=== PATIENT | female | born 1960 | race Hispanic/Latino ===

== ENCOUNTER 2018-07-08 00:24 | Inpatient (IN) | payer OTHER ==
[2018-07-08 01:56] LABS: BASO # 0.1 K/uL (0.0-0.2); BASO % 0.7 % (0.0-2.0); EOS # 0.2 K/uL (0.0-0.7); EOS % 2.1 % (0.0-4.0); HEMOGLOBIN 12.4 g/dL (11.0-16.0); LYMPH # 1.6 K/uL (1.0-4.3); LYMPH % 17.2 % (20.0-40.0); MEAN CELL VOLUME 93.1 fL (81.0-99.0); MEAN CORPUSCULAR HEMOGLOBIN 32.2 pg (27.0-31.0); MEAN CORPUSCULAR HGB CONC 34.6 g/dL (33.0-37.0); MEAN PLATELET VOLUME 7.9 fL (7.2-11.7); MONO # 0.4 K/uL (0.0-0.8); NEUT # 6.9 K/uL (1.8-7.0); RBC 3.83 Mil/uL (3.80-5.20); RED CELL DISTRIBUTION WIDTH 13.3 % (11.5-14.5); WHITE BLOOD COUNT 9.1 K/uL (4.8-10.8)
[2018-07-08 02:09] LABS: INR 1.1; PROTHROMBIN TIME 11.8 SECONDS (9.7-12.2)
[2018-07-08 02:16] LABS: ALB/GLOB RATIO 1.4 (1.0-2.1); ALBUMIN 4.6 g/dL (3.5-5.0); ALT/SGPT 40 U/L (9-52); AST/SGOT 35 U/L (14-36); BLOOD UREA NITROGEN 13 mg/dL (7-17); CALCIUM 9.6 mg/dl (8.6-10.4); GFR NON-AFRICAN AMERICAN > 60
--- NOTE | 2018-07-08 02:53 | C.PDOC ---
History Of Present Illness 57 year old female presents to the ER with brother after she lost her balance and fell earlier tonight. As per brother, patient was on the floor for approximately one hour. She is currently complaining of pain to the left hip. Patient ambulates by herself normally. Denies head injury, abdominal pain, weakness, or numbness. Time Seen by Provider: 07/08/18 01:22 Chief Complaint (Nursing): Lower Extremity Problem/Injury History Per: Family History/Exam Limitations: no limitations Onset/Duration Of Symptoms: Hrs Current Symptoms Are (Timing): Still Present Recent travel outside of the [place]: No - Hip Description Of Injury: Lost Balance Past Medical History Reviewed: Historical Data, Nursing Documentation, Vital Signs Vital Signs: Last Vital Signs Temp 97.5 F L 07/08/18 00:25 Pulse 88 07/08/18 00:25 Resp 20 07/08/18 00:25 BP 150/74 07/08/18 00:25 Pulse Ox 99 07/08/18 00:25 - Medical History PMH: Denies: Chronic Kidney Disease Surgical History: - [facility] Procedures BUNIONECTOMY NEC (06/12/15) REPAIR OF HAMMER TOE (06/12/15) Family History: States: Unknown Family Hx - Social History Hx Alcohol Use: No Hx Substance Use: No - Immunization History Hx Tetanus Toxoid Vaccination: No Hx Influenza Vaccination: No Hx Pneumococcal Vaccination: No Review Of Systems Constitutional: Negative for: Fever, Chills Cardiovascular: Negative for: Chest Pain, Palpitations Respiratory: Negative for: Cough, Shortness of Breath Gastrointestinal: Negative for: Abdominal Pain Musculoskeletal: Positive for: Other (Left hip pain) Skin: Negative for: Bruising Neurological: Negative for: Weakness, Numbness Physical Exam - Physical Exam Appears: Non-toxic Skin: Normal Color, Warm, Dry Head: Atraumatic, Normacephalic Eye(s): bilateral: Normal Inspection Oral Mucosa: Moist Neck: Normal, No Midline Cervical Tenderness, No Paracervical Tenderness, Supple Chest: Symmetrical, No Tenderness Cardiovascular: Rhythm Regular Respiratory: Normal Breath Sounds, No Rales, No Rhonchi, No Wheezing Gastrointestinal/Abdominal: Soft, No Tenderness Back: No Vertebral Tenderness, No Paraspinal Tenderness Extremity: Capillary Refill (<2 seconds), Other (Left leg shortened and externally rotated) Pulses: Left Dorsalis Pedis: Normal, Right Dorsalis Pedis: Normal Neurological/Psych: Oriented x3, Normal Speech, Normal Motor, Normal Sensation ED Course And Treatment - Laboratory Results Result Diagrams: 07/08/18 01:52 07/08/18 01:52 O2 Sat by Pulse Oximetry: 99 (Room air) Pulse Ox Interpretation: Normal - Other Rad Left hip x-ray X-Ray: Interpreted by Me, Viewed By Me Interpretation: Positive femoral neck fracture Progress Note: Thc case was discused with Christiana romero who agrees be. The case was discussed with Dr. Singh who agrees to admit the oatient Medical Decision Making Medical Decision Making: Left hip x-ray ordered, results showed positive femoral neck fracture. Case discussed with Dr. Romero and Dr. Singh, patient to be admitted. Disposition - Disposition Disposition: HOSPITALIZED Disposition Time: 04:00 (0) Condition: UNKNOWN - Clinical Impression Clinical Impression: Hip fracture - PA / ASSISTANT ACTIVITIES DIRECTOR / Resident Statement MD/DO has reviewed & agrees with the documentation as recorded. - Scribe Statement The provider has reviewed the documentation as recorded by the Scribsabrina Bar All medical record entries made by the Lupisibsabrina were at my direction and personally dictated by me. I have reviewed the chart and agree that the record accurately reflects my personal performance of the history, physical exam, medical decision making, and the department course for this patient. I have also personally directed, reviewed, and agree with the discharge instructions and disposition.
--- NOTE | 2018-07-08 08:17 | RAD ---
Date of service: 07/08/2018 PROCEDURE: CHEST RADIOGRAPH, 1 VIEW HISTORY: preop COMPARISON: None available. FINDINGS: LUNGS: No interval pulmonary disease appreciated bilaterally. PLEURA: No pneumothorax or pleural fluid seen. CARDIOVASCULAR: Normal. OSSEOUS STRUCTURES: No significant abnormalities. VISUALIZED UPPER ABDOMEN: Normal. OTHER FINDINGS: None. IMPRESSION: No acute cardiopulmonary disease appreciated.
--- NOTE | 2018-07-08 08:23 | RAD ---
Date of service: 07/08/2018 PROCEDURE: HISTORY: R/O HIP FX COMPARISON: None TECHNIQUE: AP pelvis and frog's leg view. FINDINGS: A left femoral subcapital/neck fracture is present. Femoral head seated in the acetabulum. Right hip arthrosis. SI joints unremarkable. Pubic symphyseal joint mild arthrosis. Moderate stool retention and bilateral hemipelvic phleboliths. IMPRESSION: Left subcapital/femoral neck fracture. No dislocation.
--- NOTE | 2018-07-08 08:35 | CP.PCM.CON ---
History of Present Illness - History of Present Illness History of Present Illness: Orthopedic Consult: Dr. Romero Patient is a 57 y/o female with no significant PMH who was admitted due to a left hip fracture following a fall injury last night at her home. 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 History was obtained through brother, Trace Lema, over phone ([phone]). Trace states that the patient had lost her balance while preparing her food last night. He notes that the patient was not dizzy prior to the fall and she did have LOC or head trauma. The patient was found on the floor unable to get up. She did not ambulate with an aid prior to the fall. Currently her pain is controlled and localized to lateral hip/groin/thigh. She denies radiation of brenda n/numbness/tingling. She denies CP/SOB/N/V/D. Denies cardiac/thromboembolic events in the past. 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 - HEENT Hx HEENT Problems: Yes 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4) - RENAL Hx Chronic Kidney Disease: No - ENDOCRINE/METABOLIC Hx Endocrine Disorders: No - HEMATOLOGICAL/ONCOLOGICAL Hx Blood Disorders: No - INTEGUMENTARY Hx Dermatological Problems: No - MUSCULOSKELETAL/RHEUMATOLOGICAL Hx Falls: No - GASTROINTESTINAL Hx Gastrointestinal Disorders: No - GENITOURINARY/GYNECOLOGICAL Hx Genitourinary Disorders: No - PSYCHIATRIC Hx Substance Use: No - SURGICAL HISTORY Hx Surgeries: Yes Other/Comment: Right foot bunionectomy/hammer toe reconstruction - ANESTHESIA Hx Anesthesia: Yes Hx Anesthesia Reactions: No Hx Malignant Hyperthermia: No Meds Allergies/Adverse Reactions: Allergies Allergy/AdvReac Type Severity Reaction Status Date / Time No Known Allergies Allergy Unverified 10/06/13 09:41 - Medications Medications: Current Medications Acetaminophen (Tylenol 325mg Tab) 650 mg PO Q6 PRN PRN Reason: pain Benztropine Mesylate (Cogentin) 1 mg PO DAILY [facility] Home Med (Cholecalciferol [Vitamin D 1000 Iu]) 1,000 iu PO DAILY [facility] Home Med (Imipramine [Tofranil]) 50 mg PO DAILY [facility] Home Med ([id number] [Daily Vitamins]) 1 tab PO DAILY [facility] Home Med (Risperidone [Risperdal]) 1 mg PO BID [facility] Physical Exam - Constitutional Appears: Well, No Acute Distress - Head Exam Head Exam: ATRAUMATIC, NORMOCEPHALIC - Eye Exam Eye Exam: Normal appearance - ENT Exam ENT Exam: Mucous Membranes Moist Additional comments: Deaf/mute - Neck Exam Neck exam: Positive for: Full Rom - Respiratory Exam Respiratory Exam: Clear to Auscultation Bilateral, NORMAL BREATHING PATTERN - Cardiovascular Exam Cardiovascular Exam: +S1, +S2 - GI/Abdominal Exam GI & Abdominal Exam: Soft. absent: Tenderness - Extremities Exam Additional comments: L hip: + tenderness groin/lateral hip no swelling, no lesions + externally rotated/shortened LLE sensation intact SP/DP/TN motor intact EHL/FHL/TA/G pedal pulses intact calves soft NT b/l - Neurological Exam Neurological exam: Alert, Oriented x3 - Psychiatric Exam Psychiatric exam: Normal Affect, Normal Mood - Skin Skin Exam: Normal Color, Warm Results - Vital Signs Recent Vital Signs: Last Vital Signs Temp 98.0 F 07/08/18 04:00 Pulse 85 07/08/18 04:00 Resp 20 07/08/18 04:00 BP 126/73 07/08/18 04:00 Pulse Ox 99 07/08/18 06:05 - Labs Result Diagrams: 07/08/18 01:52 07/08/18 01:52 Labs: Laboratory Results - last 24 hr 07/08/18 07/08/18 07/08/18 01:52 01:52 01:52 WBC 9.1 RBC 3.83 Hgb 12.4 Hct 35.7 MCV 93.1 MCH 32.2 H MCHC 34.6 RDW 13.3 Plt Count 255 MPV 7.9 Neut % (Auto) 76.0 H Lymph % (Auto) 17.2 L Nelson % (Auto) 4.0 Eos % (Auto) 2.1 Baso % (Auto) 0.7 Neut # (Auto) 6.9 Lymph # (Auto) 1.6 Nelson # (Auto) 0.4 Eos # (Auto) 0.2 Baso # (Auto) 0.1 PT 11.8 INR 1.1 APTT 32 Sodium 141 Potassium 3.6 Chloride 97 L Carbon Dioxide 31 H Anion Gap 16 BUN 13 Creatinine 0.6 L Est GFR ( Amer) > 60 Est GFR (Non-Af Amer) > 60 Random Glucose 106 H Calcium 9.6 Total Bilirubin 0.7 AST 35 ALT 40 Alkaline Phosphatase 78 Total Protein 7.8 Albumin 4.6 Globulin 3.2 Albumin/Globulin Ratio 1.4 Assessment & Plan (1) Left displaced femoral neck fracture Assessment and Plan: -Recommend surgical intervention today with L NELLIE -awaiting medical clearance -NPO -Risks/benefits/alternatives were discussed with patient and family over phone. They express understanding and agree to proceed with procedure above. -above d/w Dr. Romero in agreement Status: Acute Radiology Interpretation - Notes: Notes:: Accession No. : [id number] Patient Name / ID : JAIR GALLEGOS / [id number] Exam Date : 07/08/2018 00:53:48 ( Approved ) Study Comment : Sex / Age : F / 57Y Creator : Anu Carpio V. Dictator : Anu Carpio V. Audio Visual Coordinator : Tool Dispatcher : Anu Carpio V. Approver2 : Report Date : 07/08/2018 08:19:46 My Comment : Date of service: 07/08/2018 PROCEDURE: HISTORY: R/O HIP FX COMPARISON: None TECHNIQUE: AP pelvis and frog's leg view. FINDINGS: A left femoral subcapital/neck fracture is present. Femoral head seated in the acetabulum. Right hip arthrosis. SI joints unremarkable. Pubic symphyseal joint mild arthrosis. Moderate stool retention and bilateral hemipelvic phleboliths. IMPRESSION: Left subcapital/femoral neck fracture. No dislocation.
[2018-07-08] MEDS: Lactated Ringer's 1,000 ML IV SCH (09:57)
[2018-07-08] MEDS ORDERED: RISPERIDONE 1 MG PO SCH (10:00)
[2018-07-08] MEDS ORDERED: IMIPRAMINE 50 MG PO SCH (10:00)
[2018-07-08] MEDS ORDERED: MULTIVITAMIN PO SCH (10:00)
[2018-07-08] MEDS ORDERED: Home Med 1 UNIT (Cholecalciferol [Vitamin D 1000 Iu] 1,000 IU) PO SCH (10:00)
[2018-07-08] MEDS ORDERED: Enoxaparin 40 mg Syringe SC SCH (10:00)
--- NOTE | 2018-07-08 11:21 | CT ---
Date of service: 07/08/2018 PROCEDURE: LEFT HIP CT WITHOUT CONTRAST. HISTORY: L hip femoral neck fx COMPARISON: Left hip with pelvis radiographs 07/08/2018 12:55 a.m.. TECHNIQUE: A volumetric CT acquisition was performed through the left hip joint without intravenous contrast as requested. Reformatted dataset provided multiple planes for added evaluation. Contrast Dose: None. Radiation dose:Total exam DLP = 379.40 mGy-cm. This CT exam was performed using one or more of the following dose reduction techniques: Automated exposure control, adjustment of the mA and/or kV according to patient size, and/or use of iterative reconstruction technique. FINDINGS: There is oblique fracture through the proximal neck of the left femur with majority of fracture appearing subcapital major distal fracture fragment is distracted posteriorly the segment of the neck attached to the distal fracture fragment pointing anteromedially. The segment of the neck remaining on the left femoral head points anterolaterally at approximately 90 degrees relative to the major distal fracture fragment. Impaction is identified at the fracture site. No definite subluxation or dislocation of the left hip joint. Degenerative cortical sclerosis appreciate the weight-bearing portion of the left hip joint with limited osteophyte development compatible degenerative joint disease. Moderate soft tissue edema seen local to the fracture site as well as affecting subcutaneous lateral hip soft tissue. Incidental note is made of a distended but thin walled urinary bladder partially captured in this exam. Numerous shotty left inguinal lymph nodes are identified. IMPRESSION: Impacted subcapital fracture left femur without dislocation. Local soft tissue edema is identified. No subluxation or dislocation. Please see discussion above.
[2018-07-08 11:57] LABS: SQUAMOUS EPITHIAL < 1 /hpf (0-5); URINE AMORPHOUS SEDIMENT RARE /ul (<OCC); URINE BACTERIA OCC (<OCC); URINE BILIRUBIN NEGATIVE (NEGATIVE); URINE BLOOD NEGATIVE (NEGATIVE); URINE CLARITY Hazy (Clear); URINE COLOR Yellow (YELLOW); URINE GLUCOSE (UA) NORMAL (Normal); URINE LEUKOCYTE ESTERASE NEG Leu/uL (Negative); URINE PROTEIN NEGATIVE (NEGATIVE); URINE UROBILINOGEN NORMAL mg/dL (0.2-1.0)
--- NOTE | 2018-07-08 12:24 | CP.PCM.HP ---
History of Present Illness - History of Present Illness History of Present Illness: Fall Pt is a 57 year old female admitted after falling and sustaining a hip fracture. PT was last seen in my office February 23, 2018. she has been in good general health 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4) - RENAL Hx Chronic Kidney Disease: No - ENDOCRINE/METABOLIC Hx Endocrine Disorders: No - HEMATOLOGICAL/ONCOLOGICAL Hx Blood Disorders: No - INTEGUMENTARY Hx Dermatological Problems: No - MUSCULOSKELETAL/RHEUMATOLOGICAL Hx Falls: No - GASTROINTESTINAL Hx Gastrointestinal Disorders: No - GENITOURINARY/GYNECOLOGICAL Hx Genitourinary Disorders: No - PSYCHIATRIC Hx Substance Use: No - SURGICAL HISTORY Hx Surgeries: Yes Other/Comment: Right foot bunionectomy/hammer toe reconstruction - ANESTHESIA Hx Anesthesia: Yes Hx Anesthesia Reactions: No Hx Malignant Hyperthermia: No Meds Allergies/Adverse Reactions: Allergies Allergy/AdvReac Type Severity Reaction Status Date / Time No Known Allergies Allergy Unverified 10/06/13 09:41 Physical Exam - Constitutional Appears: Non-toxic Results - Vital Signs Recent Vital Signs: Last Vital Signs Temp 98.0 F 07/08/18 07:00 Pulse 79 07/08/18 07:00 Resp 20 07/08/18 07:00 BP 112/66 07/08/18 07:00 Pulse Ox 97 07/08/18 07:00 - Labs Result Diagrams: 07/08/18 01:52 07/08/18 01:52 Labs: Laboratory Results - last 24 hr 07/08/18 07/08/18 07/08/18 01:52 01:52 01:52 WBC 9.1 RBC 3.83 Hgb 12.4 Hct 35.7 MCV 93.1 MCH 32.2 H MCHC 34.6 RDW 13.3 Plt Count 255 MPV 7.9 Neut % (Auto) 76.0 H Lymph % (Auto) 17.2 L Mcduffie % (Auto) 4.0 Eos % (Auto) 2.1 Baso % (Auto) 0.7 Neut # (Auto) 6.9 Lymph # (Auto) 1.6 Mcduffie # (Auto) 0.4 Eos # (Auto) 0.2 Baso # (Auto) 0.1 PT 11.8 INR 1.1 APTT 32 Sodium 141 Potassium 3.6 Chloride 97 L Carbon Dioxide 31 H Anion Gap 16 BUN 13 Creatinine 0.6 L Est GFR ( Amer) > 60 Est GFR (Non-Af Amer) > 60 Random Glucose 106 H Calcium 9.6 Total Bilirubin 0.7 AST 35 ALT 40 Alkaline Phosphatase 78 Total Protein 7.8 Albumin 4.6 Globulin 3.2 Albumin/Globulin Ratio 1.4 Urine Color Urine Clarity Urine pH Ur Specific Isola Urine Protein Urine Glucose (UA) Urine Ketones Urine Blood Urine Nitrate Urine Bilirubin Urine Urobilinogen Ur Leukocyte Esterase Urine WBC (Auto) Urine RBC (Auto) Ur Squamous Epith Cells Amorphous Sediment Urine Bacteria Blood Type Antibody Screen 07/08/18 07/08/18 08:09 11:26 WBC RBC Hgb Hct MCV MCH MCHC RDW Plt Count MPV Neut % (Auto) Lymph % (Auto) Mcduffie % (Auto) Eos % (Auto) Baso % (Auto) Neut # (Auto) Lymph # (Auto) Mcduffie # (Auto) Eos # (Auto) Baso # (Auto) PT INR APTT Sodium Potassium Chloride Carbon Dioxide Anion Gap BUN Creatinine Est GFR ( Amer) Est GFR (Non-Af Amer) Random Glucose Calcium Total Bilirubin AST ALT Alkaline Phosphatase Total Protein Albumin Globulin Albumin/Globulin Ratio Urine Color Yellow Urine Clarity Hazy Urine pH 8.0 Ur Specific Isola 1.008 Urine Protein Negative Urine Glucose (UA) Normal Urine Ketones Negative Urine Blood Negative Urine Nitrate Negative Urine Bilirubin Negative Urine Urobilinogen Normal Ur Leukocyte Esterase Neg Urine WBC (Auto) 1 Urine RBC (Auto) 1 Ur Squamous Epith Cells < 1 Amorphous Sediment Rare H Urine Bacteria Occ H Blood Type O POSITIVE Antibody Screen Negative Assessment & Plan - Assessment and Plan (Free Text) Assessment: 57 year old in general good health no cardiac history pt is medically stable for surgery
[2018-07-08] MEDS ORDERED: Bupivacaine Liposomal Inj 20 ml INFIL ONE (13:53)
[2018-07-08] MEDS ORDERED: Midazolam 2 MG/2 ML VIAL ONE (13:58)
[2018-07-08] MEDS ORDERED: Propofol 10 mg/ml Inj (20 ML) ONE (13:58)
[2018-07-08] MEDS ORDERED: Morphine 1 mg/ml preservative-free Inj(Duramorph) ONE (14:36)
[2018-07-08] MEDS ORDERED: ceFAZolin IV 1 gm in Dextrose 2 GM/100 ML BAG IVPB ONE (15:55)
[2018-07-08] MEDS ORDERED: Tranexamic Acid 1,000 MG in Sodium Chloride 0.9% 50 ML IVPB SCH (16:00)
[2018-07-08] MEDS ORDERED: Phenylephrine 10 mg/ml Inj ONE (16:16)
[2018-07-08] MEDS ORDERED: EPINEPHrine 1 mg/ml (1:1000) Inj ONE (16:17)
[2018-07-08] MEDS ORDERED: Rocuronium 10 mg/ml (5 ml) ONE (16:24)
[2018-07-08] MEDS ORDERED: Thrombin Topical 20,000 Intl Units Spray Kit TOP ONE (16:24)
[2018-07-08] MEDS ORDERED: Absorbable Gelatin Sponge Size 100 ONE (16:24)
[2018-07-08] MEDS ORDERED: Sodium Chloride 0.9% 60 ML IV ONE (16:28)
[2018-07-08] MEDS: Bacitracin 150,000 UNIT in Sodium Chloride 0.9% Irrig 3,000 ML IR SCH ×5 (16:32→18:22)
[2018-07-08] MEDS ORDERED: Neostigmine Methylsulfate 3mg/3ml Syringe IV ONE (18:38)
[2018-07-08] MEDS ORDERED: Bacitracin 500 Units/gm Oint Foilpak UD ONE (18:57)
[2018-07-08] MEDS ORDERED: Lactated Ringer's 1,000 ML IV ONE (19:06)
[2018-07-08] MEDS ORDERED: DiphenhydrAMINE 50 mg/ml Inj IVP PRN (19:11)
[2018-07-08] MEDS ORDERED: Naloxone 0.4 mg/ml Inj (Adult) IVP PRN (19:11)
--- NOTE | 2018-07-08 19:12 | PCM.SURG1 ---
Surgeon's Initial Post Op Note - Surgeon's Notes Surgeon: Paulino Romero MD Egg Buyer: Christiana Addison PA-C Type of Anesthesia: General Endo, Spinal Anesthesia Administered By: Dr. Duckworth Pre-Operative Diagnosis: Left hip femoral neck fracture Operative Findings: see full note Post-Operative Diagnosis: same Operation Performed: 1. Left total hip replacement. 2. femoral neck osteotomy. 3. autograft bone graft to acetabulum. 4. femoral neck osteotomy. 5. computer navigation Specimen/Specimens Removed: femoral head Estimated Blood Loss: EBL {In ML}: 800 Blood Products Given: PRBC (2u) Drains Used: No Drains Post-Op Condition: Fair Date of Surgery/Procedure: 07/08/18 Time of Surgery/Procedure: 19:11
[2018-07-08] MEDS: Sodium Chloride 0.9% 1,000 ML IV SCH (20:00)
[2018-07-09] MEDS: ceFAZolin IV 2 gm in Dextrose 2 GM/50 ML BAG IVPB SCH ×2 (01:04→08:13)
[2018-07-09] MEDS: Lactated Ringer's 1,000 ML IV SCH (05:45)
[2018-07-09 07:19] LABS: MEAN CELL VOLUME 92.3 fL (81.0-99.0); MEAN CORPUSCULAR HEMOGLOBIN 32.2 pg (27.0-31.0); MEAN CORPUSCULAR HGB CONC 34.9 g/dL (33.0-37.0); MEAN PLATELET VOLUME 7.7 fL (7.2-11.7); RBC 3.42 Mil/uL (3.80-5.20); RED CELL DISTRIBUTION WIDTH 13.9 % (11.5-14.5); WHITE BLOOD COUNT 10.5 K/uL (4.8-10.8)
[2018-07-09 07:36] LABS: ALB/GLOB RATIO 1.2 (1.0-2.1); ALT/SGPT 30 U/L (9-52); AST/SGOT 32 U/L (14-36); BLOOD UREA NITROGEN 10 mg/dL (7-17); CALCIUM 8.5 mg/dl (8.6-10.4); GFR NON-AFRICAN AMERICAN > 60
--- NOTE | 2018-07-09 08:37 | RAD ---
PROCEDURE: Left Hip X-ray Radiographs. Three views HISTORY: Status post left total hip arthroplasty COMPARISON: None. FINDINGS: BONES: Status post left total hip arthroplasty. Overlying surgical nam, drains, and air in the soft tissues. Anatomic alignment of the hardware. Lucency is noted at the metal bone interface at the medial aspect of the proximal femur. Clinical correlation. JOINTS: Mild to moderate degenerative changes of the right hip joint space. Mild osteitis pubis. Mild degenerative changes in the lower lumbar spine. SOFT TISSUES: Normal. OTHER FINDINGS: Calcified phleboliths in the pelvis. IMPRESSION: Status post left total hip arthroplasty.
--- NOTE | 2018-07-09 08:57 | RAD ---
Date of service: 07/08/2018 PROCEDURE: Intraoperative Fluoroscopy. HISTORY: LEFT HIP fracture FINDINGS: Fluoroscopic assistance was provided for left hip total arthroplasty. Please refer to the operative report from [facility].
[2018-07-09] MEDS: Sodium Chloride 0.9% 1,000 ML IV SCH (09:00)
[2018-07-09] MEDS: Multiple Vitamins Tab PO SCH (09:32)
--- NOTE | 2018-07-09 09:59 | CP.PCM.PN ---
Subjective - Date & Time of Evaluation Date of Evaluation: 07/09/18 Time of Evaluation: 09:56 - Subjective Subjective: Patient with PT/OT, tolerated very well. She complains of a little pain in her thigh, indicates she feels ok. Objective - Vital Signs/Intake and Output Vital Signs (last 24 hours): Temp Pulse Resp BP Pulse Ox 98.5 F 83 20 107/63 96 07/09/18 07:10 07/09/18 07:10 07/09/18 07:10 07/09/18 07:10 07/09/18 07:10 Intake and Output: 07/09/18 07/09/18 06:59 18:59 Intake Total 120 Output Total 400 Balance -280 - Medications Medications: Current Medications Acetaminophen (Tylenol 325mg Tab) 650 mg PO Q6 [facility] Last Admin: 07/09/18 05:37 Dose: 650 mg Benztropine Mesylate (Cogentin) 1 mg PO DAILY [facility] Last Admin: 07/09/18 09:32 Dose: 1 mg Diphenhydramine HCl (Benadryl) 25 mg IVP Q6 PRN PRN Reason: Itching / Pruritus Docusate Sodium (Colace) 100 mg PO BID [facility] Last Admin: 07/09/18 09:32 Dose: 100 mg Enoxaparin Sodium (Lovenox) 40 mg SC Q24H [facility] Ergocalciferol (Drisdol 50,000 Intl Units Cap) 1 cap PO QWK [facility] Lactated Ringer's (Lactated Ringer's) 1,000 mls @ 100 mls/hr IV .Q10H [facility] Last Admin: 07/09/18 05:45 Dose: Not Given Sodium Chloride (Sodium Chloride 0.9%) 1,000 mls @ 60 mls/hr IV .[id number] [facility] Last Admin: 07/08/18 20:00 Dose: 0 mls Imipramine HCl (Tofranil) 50 mg PO DAILY [facility] Last Admin: 07/09/18 09:33 Dose: 50 mg Morphine Sulfate (Morphine) 2 mg IVP Q4H PRN PRN Reason: Pain, severe (8-10) Multivitamins (Hexavitamin) 1 tab PO DAILY [facility] Last Admin: 07/09/18 09:32 Dose: 1 tab Ondansetron HCl (Zofran Inj) 4 mg IVP Q6H PRN PRN Reason: Nausea/Vomiting Risperidone (Risperdal Tab) 1 mg PO BID [facility] Last Admin: 07/09/18 09:34 Dose: 1 mg - Labs Labs: 07/09/18 07:08 07/09/18 07:08 PT 11.8 SECONDS (9.7-12.2) 07/08/18 01:52 INR 1.1 07/08/18 01:52 APTT 32 SECONDS (21-34) 07/08/18 01:52 - Extremities Exam Additional comments: Left hip: SAMIA intact, thigh mild swelling, +ROM ankle/toes, sensation intact +PT/DP pulses, calves soft NT eng homans Assessment and Plan (1) Left displaced femoral neck fracture Assessment & Plan: POD#1 s/p left THR ortho stable for d/c to rehab SAMIA dressing to be removed on 07/11 and dry sterile dressing placed PT referral to TCU, pending auth f/u Dr. Romero 2 weeks call for appt VTE proph d/w Dr. Romero, agrees with above Status: Acute
--- NOTE | 2018-07-09 14:57 | CP.PCM.PN ---
Subjective - Date & Time of Evaluation Date of Evaluation: 07/09/18 Time of Evaluation: 05:00 - Subjective Subjective: SP fall and hip surgery appreciate ortho note pt doing well awaing rehab using walker eating well no issues Objective - Vital Signs/Intake and Output Vital Signs (last 24 hours): Temp Pulse Resp BP Pulse Ox 98.5 F 83 20 107/63 96 07/09/18 07:10 07/09/18 07:10 07/09/18 07:10 07/09/18 07:10 07/09/18 07:10 Intake and Output: 07/09/18 07/09/18 06:59 18:59 Intake Total 120 Output Total 400 Balance -280 - Medications Medications: Current Medications Acetaminophen (Tylenol 325mg Tab) 650 mg PO Q6 [facility] Last Admin: 07/09/18 12:39 Dose: 650 mg Benztropine Mesylate (Cogentin) 1 mg PO DAILY [facility] Last Admin: 07/09/18 09:32 Dose: 1 mg Diphenhydramine HCl (Benadryl) 25 mg IVP Q6 PRN PRN Reason: Itching / Pruritus Docusate Sodium (Colace) 100 mg PO BID [facility] Last Admin: 07/09/18 09:32 Dose: 100 mg Enoxaparin Sodium (Lovenox) 40 mg SC Q24H [facility] Ergocalciferol (Drisdol 50,000 Intl Units Cap) 1 cap PO QWK [facility] Lactated Ringer's (Lactated Ringer's) 1,000 mls @ 100 mls/hr IV .Q10H [facility] Last Admin: 07/09/18 05:45 Dose: Not Given Sodium Chloride (Sodium Chloride 0.9%) 1,000 mls @ 60 mls/hr IV .[id number] [facility] Last Admin: 07/09/18 09:00 Dose: Not Given Imipramine HCl (Tofranil) 50 mg PO DAILY [facility] Last Admin: 07/09/18 09:33 Dose: 50 mg Morphine Sulfate (Morphine) 2 mg IVP Q4H PRN PRN Reason: Pain, severe (8-10) Multivitamins (Hexavitamin) 1 tab PO DAILY [facility] Last Admin: 07/09/18 09:32 Dose: 1 tab Ondansetron HCl (Zofran Inj) 4 mg IVP Q6H PRN PRN Reason: Nausea/Vomiting Risperidone (Risperdal Tab) 1 mg PO BID [facility] Last Admin: 07/09/18 09:34 Dose: 1 mg - Labs Labs: 07/09/18 07:08 07/09/18 07:08 PT 11.8 SECONDS (9.7-12.2) 07/08/18 01:52 INR 1.1 07/08/18 01:52 APTT 32 SECONDS (21-34) 07/08/18 01:52 - Constitutional Appears: Well, Non-toxic - Eye Exam Eye Exam: Periorbital tenderness - ENT Exam ENT Exam: Mucous Membranes Moist - Respiratory Exam Respiratory Exam: Clear to Ausculation Bilateral - Cardiovascular Exam Cardiovascular Exam: RRR, +S1, +S2. absent: Rubs - GI/Abdominal Exam GI & Abdominal Exam: Soft Assessment and Plan - Assessment and Plan (Free Text) Assessment: SP hip surgery awaiting for rehab vs home
--- NOTE | 2018-07-09 15:34 | OP ---
PROCEDURE DATE: 07/08/2018 PREOPERATIVE DIAGNOSES: 1. Garden IV subcapital fracture of the left hip. 2. Pre-existing osteoarthritis. POSTOPERATIVE DIAGNOSES: 1. Garden IV subcapital fracture of the left hip. 2. Pre-existing osteoarthritis. PROCEDURES: 1. Left total hip replacement arthroplasty, anterior approach. 2. Femoral neck osteotomy. 3. Release of the iliopsoas tendon. 4. Autograft bone graft to the acetabulum. 5. Computer navigation. SURGEON: Chris Romero MD ELECTROMECHANISMS DESIGN DRAFTER: J Carlos Castro PA-C SECOND PET FEEDER: EVIE Castaneda, certified registered nursing first aid instructor. OPERATIVE INDICATION: Suzette Lema is a 57-year-old woman, who sustained a fall, sustaining a displaced subcapital fracture of the left hip with the pre-existing osteoarthritic change. Pros, cons, risks, and benefits of the surgical approach, specifically total hip replacement arthroplasty were discussed at length with the patient and her family, but specifically with the patient through the culturally competent record librarian using the translation Skype. The patient is auditorily and focally impaired. OPERATIVE PROCEDURE: After having obtained informed consent, after finally discussing the pros, cons, risks, and benefits of the surgical approach, possibly mechanical failure, infection, thromboembolic disease, possibility of secondary or tertiary surgeries discussed. The patient could no longer withstand the discomfort and wished the surgery to be accomplished. Alternative procedures were discussed including benign neglect. Open reduction and internal fixation with the concept of immediate weightbearing has attracted this patient to operative procedure. After having obtained the informed consent in the above fashion, after having identified side, site, and procedure, and a critical pause/time out after the satisfactory induction of general and spinal anesthesia by Dr. Duckworth, the patient identified as Suzette Lema was placed in the supine position in the [facility] positioner. Pros, cons, risks, and benefits of surgical approach were discussed, possibility of mechanical failure, infection, thromboembolic disease, possibility of secondary or tertiary surgery were discussed. After having obtained the informed consent, after having identified the side, site, procedure, and critical pause/time out after the satisfactory induction of the anesthetic, the patient was identified as Suzette Lema in the supine position with all bony prominences well padded. The left lower extremity was prepped and free-draped in the usual fashion for lower extremity surgery. An incision was prescribed 3 fingerbreadths posterior to the anterior and superior iliac spine and 4 inches in extent. The skin incision was carried out to the skin and subcutaneous tissue. Hemostasis was controlled. The fascia and the tensor fascia femoris were divided, and the Weitlaner retractor was placed. The posterior aspect of the tensor fascia femoris was carefully dissected. Hemostasis was controlled, and the Weitlaner retractor was placed horizontally and deep just superficial to the hip capsule. This having been accomplished, the capsulotomy was accomplished extending from the acetabulum medially in the area of the trochanteric line. Stay sutures were applied, and the remainder was released. The femoral neck osteotomy was accomplished using the oscillating saw. This having been accomplished with the external rotation, the bone was removed and the head was removed from the acetabulum. Arthrotomy and synovectomy were accomplished. Exposure was accomplished using the modified Charnley retractor. The femoral head was measured to 46, sequentially reaming to 52 mm. The computer navigation commenced. Two pins were placed in the anterior superior iliac spine. The navigation was accomplished. This having been accomplished, the wound was thoroughly irrigated. The anterior plane of the pelvis was identified, and this having been accomplished, reaming commenced and reaming was carried out to approximately 45 degrees of abduction and 20 degrees of anteversion. This having been accomplished, the reamings are denuded of articular cartilage. Autograft bone grafting to the acetabulum was accomplished. A 52-mm cup was impacted in approximately 45 degrees of abduction and approximately 23 degrees of anteversion. The cup was found to be stable, and pelvic lift test was positive. The cup was stable. It was impacted. Again, navigation was accomplished to determine on entry of the cup, the abduction and the anteversion. This having been accomplished, attention was turned to the femur. External rotation to the femur was accomplished. The pubofemoral ligament was released. The ischiofemoral and iliofemoral ligaments were released as well. The bridge of bone between the neck and the trochanter was removed. The femur was externally rotated. The femur was flexed and abducted. At this point in time, again the bridge of the bone between the neck and the trochanter was removed using the box chisel. The canal was found using a rasp. Sequential reaming was carried out to a #5 broach. This was coupled with a 0 neutral 28-mm head and 52-mm outer bearing. The hip was reduced and found to be stable in all planes. The broach was removed. The #5 femoral component with the flange was impacted. The wound was thoroughly irrigated. The 28-mm ceramic head and the 52-mm outer bearing were impacted. The hip was reduced and found to be stable in all planes. This having been accomplished, hemostasis was controlled with the Aquamantys. The hip was found to be stable in all planes. The iliopsoas tendon have been released because of contracture as well. Hemostasis was controlled with the Aquamantys with the thrombin and Gelfoam and with the FloSeal, closure of the tensor fascia femoris was with 0 Quill, followed by 0 Vicryl, 2-0 Vicryl, and nam to skin. A SAMIA wound VAC was applied. Compressive dressing was applied. OPERATIVE PROCEDURES: 1. Left total hip replacement, anterior approach. 2. Femoral neck osteotomy. 3. Arthrotomy and synovectomy. 4. Release of iliopsoas tendon. 5. Autograft bone graft to the acetabulum. 6. Computer navigation. Chris Romero MD
--- NOTE | 2018-07-09 17:49 | CARD ---
APPROVED REPORT Date of service: 07/08/2018 EKG Measurement Heart [id number] <Conclusion> Normal sinus rhythm Normal ECG
[2018-07-09] MEDS: Enoxaparin 40 mg Syringe SC SCH (17:59)
--- NOTE | 2018-07-10 09:24 | CP.PCM.PN ---
Subjective - Date & Time of Evaluation Date of Evaluation: 07/10/18 Time of Evaluation: 09:24 - Subjective Subjective: Pt reports no complaints signals thumbs up Objective - Vital Signs/Intake and Output Vital Signs (last 24 hours): Temp Pulse Resp BP Pulse Ox 98.8 F 103 H 20 114/57 L 96 07/09/18 23:30 07/10/18 05:57 07/09/18 23:30 07/10/18 05:57 07/09/18 23:30 Intake and Output: 07/10/18 07/10/18 06:59 18:59 Intake Total 480 Balance 480 - Medications Medications: Current Medications Acetaminophen (Tylenol 325mg Tab) 650 mg PO Q6 [facility] Last Admin: 07/10/18 06:02 Dose: 650 mg Benztropine Mesylate (Cogentin) 1 mg PO DAILY [facility] Last Admin: 07/09/18 09:32 Dose: 1 mg Diphenhydramine HCl (Benadryl) 25 mg IVP Q6 PRN PRN Reason: Itching / Pruritus Docusate Sodium (Colace) 100 mg PO BID [facility] Last Admin: 07/09/18 18:01 Dose: 100 mg Enoxaparin Sodium (Lovenox) 40 mg SC Q24H [facility] Last Admin: 07/09/18 17:59 Dose: 40 mg Ergocalciferol (Drisdol 50,000 Intl Units Cap) 1 cap PO QWK [facility] Sodium Chloride (Sodium Chloride 0.9%) 1,000 mls @ 60 mls/hr IV .[id number] [facility] Last Admin: 07/09/18 09:00 Dose: Not Given Imipramine HCl (Tofranil) 50 mg PO DAILY [facility] Last Admin: 07/09/18 09:33 Dose: 50 mg Morphine Sulfate (Morphine) 2 mg IVP Q4H PRN PRN Reason: Pain, severe (8-10) Multivitamins (Hexavitamin) 1 tab PO DAILY [facility] Last Admin: 07/09/18 09:32 Dose: 1 tab Ondansetron HCl (Zofran Inj) 4 mg IVP Q6H PRN PRN Reason: Nausea/Vomiting Risperidone (Risperdal Tab) 1 mg PO BID [facility] Last Admin: 07/09/18 18:04 Dose: 1 mg - Labs Labs: 07/09/18 07:08 07/09/18 07:08 PT 11.8 SECONDS (9.7-12.2) 07/08/18 01:52 INR 1.1 07/08/18 01:52 APTT 32 SECONDS (21-34) 07/08/18 01:52 - Constitutional Appears: Well, Non-toxic - Eye Exam Eye Exam: Normal appearance - ENT Exam ENT Exam: Mucous Membranes Moist - Respiratory Exam Respiratory Exam: Clear to Ausculation Bilateral - Cardiovascular Exam Cardiovascular Exam: +S1, +S2 - GI/Abdominal Exam GI & Abdominal Exam: Soft Assessment and Plan - Assessment and Plan (Free Text) Assessment: sp fall and hip fx pod #1 no fever dc to rehab when bed available
[2018-07-10] MEDS: Multiple Vitamins Tab PO SCH (10:27)
[2018-07-10] MEDS: Enoxaparin 40 mg Syringe SC SCH (17:30)
[2018-07-11] MEDS: Sodium Chloride 0.9% 1,000 ML IV SCH ×2 (00:36→13:12)
[2018-07-11] MEDS: Multiple Vitamins Tab PO SCH (09:47)
--- NOTE | 2018-07-11 12:57 | CP.PCM.PN ---
Subjective - Date & Time of Evaluation Date of Evaluation: 07/11/18 Time of Evaluation: 10:05 - Subjective Subjective: S- pt comfortable/minimal post op discomfort/pt extremely pleased with result Objective - Vital Signs/Intake and Output Vital Signs (last 24 hours): Temp Pulse Resp BP Pulse Ox 98.5 F 89 20 108/61 98 07/11/18 07:00 07/11/18 07:00 07/11/18 07:00 07/11/18 07:00 07/11/18 07:00 Intake and Output: 07/11/18 07/11/18 06:59 18:59 Intake Total 730 Balance 730 - Medications Medications: Current Medications Acetaminophen (Tylenol 325mg Tab) 650 mg PO Q6 [facility] Last Admin: 07/11/18 05:30 Dose: 650 mg Benztropine Mesylate (Cogentin) 1 mg PO DAILY [facility] Last Admin: 07/11/18 09:41 Dose: 1 mg Diphenhydramine HCl (Benadryl) 25 mg IVP Q6 PRN PRN Reason: Itching / Pruritus Docusate Sodium (Colace) 100 mg PO BID [facility] Last Admin: 07/11/18 09:46 Dose: 100 mg Enoxaparin Sodium (Lovenox) 40 mg SC Q24H [facility] Last Admin: 07/10/18 17:30 Dose: 40 mg Ergocalciferol (Drisdol 50,000 Intl Units Cap) 1 cap PO QWK [facility] Sodium Chloride (Sodium Chloride 0.9%) 1,000 mls @ 60 mls/hr IV .[id number] [facility] Last Admin: 07/11/18 00:36 Dose: 60 mls/hr Imipramine HCl (Tofranil) 50 mg PO DAILY [facility] Last Admin: 07/10/18 10:28 Dose: 50 mg Morphine Sulfate (Morphine) 2 mg IVP Q4H PRN PRN Reason: Pain, severe (8-10) Multivitamins (Hexavitamin) 1 tab PO DAILY [facility] Last Admin: 07/11/18 09:47 Dose: 1 tab Ondansetron HCl (Zofran Inj) 4 mg IVP Q6H PRN PRN Reason: Nausea/Vomiting Risperidone (Risperdal Tab) 1 mg PO BID [facility] Last Admin: 07/11/18 09:47 Dose: 1 mg - Labs Labs: 10/19/18 07:08 07/09/18 07:08 PT 11.8 SECONDS (9.7-12.2) 07/08/18 01:52 INR 1.1 07/08/18 01:52 APTT 32 SECONDS (21-34) 07/08/18 01:52 - Skin Additional comments: systemic pt with auditory and vocal challenges (pt "deaf/dumb") Musculoskeltal stance/gairt- defrred wound drsssing intact N/V intact no gross progressive deficits Assessment and Plan - Assessment and Plan (Free Text) Assessment: A- s/p L THR P- orthopedicALLY STABLE FOR D/C TO REHAB
[2018-07-11] MEDS: Enoxaparin 40 mg Syringe SC SCH (17:49)
[2018-07-12 09:01] VITALS: BP 110/67; PULSE 81; RESP 18; TEMP 97.3; O2SAT 99
--- NOTE | 2018-07-12 09:25 | CP.PCM.PN ---
Subjective - Date & Time of Evaluation Date of Evaluation: 07/12/18 Time of Evaluation: 08:45 - Subjective Subjective: Patient seen and examined at bedside comfortable. Patient nods in response, pain is well controlled. No new complaints. Awaiting rehab placement, availability of bed in [facility]. Denies CP/SOB/fever/TEE. Objective - Vital Signs/Intake and Output Vital Signs (last 24 hours): Temp Pulse Resp BP Pulse Ox 97.3 F L 81 18 110/67 99 07/12/18 07:00 07/12/18 07:00 07/12/18 07:00 07/12/18 07:00 07/12/18 07:00 Intake and Output: 07/12/18 07/12/18 06:59 18:59 Intake Total 780 Balance 780 - Medications Medications: Current Medications Acetaminophen (Tylenol 325mg Tab) 650 mg PO Q6 [facility] Last Admin: 07/12/18 05:05 Dose: 650 mg Benztropine Mesylate (Cogentin) 1 mg PO DAILY [facility] Last Admin: 07/11/18 09:41 Dose: 1 mg Diphenhydramine HCl (Benadryl) 25 mg IVP Q6 PRN PRN Reason: Itching / Pruritus Docusate Sodium (Colace) 100 mg PO BID [facility] Last Admin: 07/11/18 17:49 Dose: 100 mg Enoxaparin Sodium (Lovenox) 40 mg SC Q24H [facility] Last Admin: 07/11/18 17:49 Dose: 40 mg Ergocalciferol (Drisdol 50,000 Intl Units Cap) 1 cap PO QWK [facility] Imipramine HCl (Tofranil) 50 mg PO DAILY [facility] Last Admin: 07/11/18 10:00 Dose: 50 mg Morphine Sulfate (Morphine) 2 mg IVP Q4H PRN PRN Reason: Pain, severe (8-10) Multivitamins (Hexavitamin) 1 tab PO DAILY [facility] Last Admin: 07/11/18 09:47 Dose: 1 tab Ondansetron HCl (Zofran Inj) 4 mg IVP Q6H PRN PRN Reason: Nausea/Vomiting Risperidone (Risperdal Tab) 1 mg PO BID [facility] Last Admin: 07/11/18 17:48 Dose: 1 mg - Labs Labs: 07/09/18 07:08 07/09/18 07:08 PT 11.8 SECONDS (9.7-12.2) 07/08/18 01:52 INR 1.1 07/08/18 01:52 APTT 32 SECONDS (21-34) 07/08/18 01:52 - Extremities Exam Additional comments: L hip: SAMIA dressing with mild dry serous drainage, dressings removed revealing wound and port sites CDI , no drainage sensation intact SP/DP/Tn motor intact EHL/FHL/TA/G pedal pulses intact comps soft NT b/l Assessment and Plan (1) Left displaced femoral neck fracture Assessment & Plan: POD#4 s/p L NELLIE doing well -dressings changed -PT/OT PWB 20% with walker -DVT ppx -orthopedically stable for discharge to rehab today -d/w Dr. Romero in agreement Status: Acute
[2018-07-12] MEDS: Multiple Vitamins Tab PO SCH (10:57)
--- NOTE | 2018-07-12 15:17 | CP.PCM.PN ---
Subjective - Date & Time of Evaluation Date of Evaluation: 07/12/18 Time of Evaluation: 15:15 - Subjective Subjective: PT CLEARED FOR D/C TODAY TO [facility] PER [facility]THO. ALSO OK PER DR. RILEY TO BE D/C TO [facility] TODAY. PT TO F/U WITH DR. GRIGSBY IN 2 WEEKS FROM THE [facility]. SW TO ARRANGE TRANSPORTATION TO FACILITY. SEE BELOW FOR FURTHER D/C INFORMATION. NO FURTHER ORDERS. -FOLLOW UP WITH DR. GRIGSBY IN 2 WEEKS IN HIS OFFICE (BY 07/26/18)--- PLEASE ARRANGE FOR APPOINTMENT AND FOR TRANSPORTATION TO AND FROM THE REHAB FACILITY. -CONTINUE MEDICATIONS PER THE MED REC FORM---CHANGES CAN BE MADE BY ATTENDING MD AT REHAB. -PHYSICAL THERAPY TOLERATED. -FALL PRECAUTIONS PER FACILITY PROTOCOL. -FOR QUESTIONS REGARDING RECENT HOSPITALIZATION AND/OR SURGERY, MAY CONTACT DR. RILEY OR DR. GRIGSBY. Objective - Vital Signs/Intake and Output Vital Signs (last 24 hours): Temp Pulse Resp BP Pulse Ox 97.3 F L 81 18 110/67 99 07/12/18 07:00 07/12/18 07:00 07/12/18 07:00 07/12/18 07:00 07/12/18 07:00 Intake and Output: 07/12/18 07/12/18 06:59 18:59 Intake Total 780 Balance 780 - Medications Medications: Current Medications Acetaminophen (Tylenol 325mg Tab) 650 mg PO Q6 [facility] Last Admin: 07/12/18 12:57 Dose: 650 mg Benztropine Mesylate (Cogentin) 1 mg PO DAILY [facility] Last Admin: 07/12/18 10:57 Dose: 1 mg Diphenhydramine HCl (Benadryl) 25 mg IVP Q6 PRN PRN Reason: Itching / Pruritus Docusate Sodium (Colace) 100 mg PO BID [facility] Last Admin: 07/12/18 10:57 Dose: 100 mg Enoxaparin Sodium (Lovenox) 40 mg SC Q24H [facility] Last Admin: 07/11/18 17:49 Dose: 40 mg Ergocalciferol (Drisdol 50,000 Intl Units Cap) 1 cap PO QWK [facility] Imipramine HCl (Tofranil) 50 mg PO DAILY [facility] Last Admin: 07/12/18 11:00 Dose: 50 mg Morphine Sulfate (Morphine) 2 mg IVP Q4H PRN PRN Reason: Pain, severe (8-10) Multivitamins (Hexavitamin) 1 tab PO DAILY [facility] Last Admin: 07/12/18 10:57 Dose: 1 tab Ondansetron HCl (Zofran Inj) 4 mg IVP Q6H PRN PRN Reason: Nausea/Vomiting Risperidone (Risperdal Tab) 1 mg PO BID [facility] Last Admin: 07/12/18 10:57 Dose: 1 mg - Labs Labs: 07/09/18 07:08 07/09/18 07:08 PT 11.8 SECONDS (9.7-12.2) 07/08/18 01:52 INR 1.1 07/08/18 01:52 APTT 32 SECONDS (21-34) 07/08/18 01:52
--- NOTE | 2018-07-12 17:11 | CP.PCM.DIS ---
Provider - Provider Date of Admission: 07/08/18 03:29 Attending physician: Jewels Singh MD Time Spent in preparation of Discharge (in minutes): 20 Hospital Course - Lab Results Lab Results: Most Recent Lab Values WBC 10.5 K/uL (4.8-10.8) 07/09/18 07:08 RBC 3.42 Mil/uL (3.80-5.20) L 07/09/18 07:08 Hgb 11.0 g/dL (11.0-16.0) 07/09/18 07:08 Hct 31.5 % (34.0-47.0) L 07/09/18 07:08 MCV 92.3 fL (81.0-99.0) 07/09/18 07:08 MCH 32.2 pg (27.0-31.0) H 07/09/18 07:08 MCHC 34.9 g/dL (33.0-37.0) 07/09/18 07:08 RDW 13.9 % (11.5-14.5) 07/09/18 07:08 Plt Count 176 K/uL (130-400) 07/09/18 07:08 MPV 7.7 fL (7.2-11.7) 07/09/18 07:08 Neut % (Auto) 76.0 % (50.0-75.0) H 07/08/18 01:52 Lymph % (Auto) 17.2 % (20.0-40.0) L 07/08/18 01:52 [place] % (Auto) 4.0 % (0.0-10.0) 07/08/18 01:52 Eos % (Auto) 2.1 % (0.0-4.0) 07/08/18 01:52 Baso % (Auto) 0.7 % (0.0-2.0) 07/08/18 01:52 Neut # (Auto) 6.9 K/uL (1.8-7.0) 07/08/18 01:52 Lymph # (Auto) 1.6 K/uL (1.0-4.3) 07/08/18 01:52 [place] # (Auto) 0.4 K/uL (0.0-0.8) 07/08/18 01:52 Eos # (Auto) 0.2 K/uL (0.0-0.7) 07/08/18 01:52 Baso # (Auto) 0.1 K/uL (0.0-0.2) 07/08/18 01:52 PT 11.8 SECONDS (9.7-12.2) 07/08/18 01:52 INR 1.1 07/08/18 01:52 APTT 32 SECONDS (21-34) 07/08/18 01:52 Sodium 137 mmol/L (132-148) 07/09/18 07:08 Potassium 4.3 mmol/L (3.6-5.2) 07/09/18 07:08 Chloride 104 mmol/L (98-107) 07/09/18 07:08 Carbon Dioxide 27 mmol/L (22-30) 07/09/18 07:08 Anion Gap 11 (10-20) 07/09/18 07:08 BUN 10 mg/dL (7-17) 07/09/18 07:08 Creatinine 0.5 mg/dL (0.7-1.2) L 07/09/18 07:08 Est GFR ( Amer) > 60 07/09/18 07:08 Est GFR (Non-Af Amer) > 60 07/09/18 07:08 Random Glucose 121 mg/dL (65-105) H 07/09/18 07:08 Calcium 8.5 mg/dl (8.6-10.4) L 07/09/18 07:08 Total Bilirubin 1.5 mg/dL (0.2-1.3) H 07/09/18 07:08 AST 32 U/L (14-36) 07/09/18 07:08 ALT 30 U/L (9-52) 07/09/18 07:08 Alkaline Phosphatase 48 U/L (38-126) 07/09/18 07:08 Total Protein 5.6 g/dL (6.3-8.3) L 07/09/18 07:08 Albumin 3.0 g/dL (3.5-5.0) L D 07/09/18 07:08 Globulin 2.6 gm/dL (2.2-3.9) 07/09/18 07:08 Albumin/Globulin Ratio 1.2 (1.0-2.1) 07/09/18 07:08 25-OH Vitamin D Total 45.6 NG/ML (30.0-100.0) 07/08/18 12:32 Urine Color Yellow (YELLOW) 07/08/18 11:26 Urine Clarity Hazy (Clear) 07/08/18 11:26 Urine pH 8.0 (5.0-8.0) 07/08/18 11:26 Ur Specific [place] 1.008 (1.003-1.030) 07/08/18 11:26 Urine Protein Negative mg/dL (NEGATIVE) 07/08/18 11:26 Urine Glucose (UA) Normal mg/dL (Normal) 07/08/18 11:26 Urine Ketones Negative mg/dL (NEGATIVE) 07/08/18 11:26 Urine Blood Negative (NEGATIVE) 07/08/18 11:26 Urine Nitrate Negative (NEGATIVE) 07/08/18 11:26 Urine Bilirubin Negative (NEGATIVE) 07/08/18 11:26 Urine Urobilinogen Normal mg/dL (0.2-1.0) 07/08/18 11:26 Ur Leukocyte Esterase Neg Jd/uL (Negative) 07/08/18 11:26 Urine WBC (Auto) 1 /hpf (0-5) 07/08/18 11:26 Urine RBC (Auto) 1 /hpf (0-3) 07/08/18 11:26 Ur Squamous Epith Cells < 1 /hpf (0-5) 07/08/18 11:26 Amorphous Sediment Rare /ul (<OCC) H 07/08/18 11:26 Urine Bacteria Occ (<OCC) H 07/08/18 11:26 Blood Type O POSITIVE 07/08/18 08:09 Antibody Screen Negative 07/08/18 08:09 - Hospital Course Hospital Course: Pt was admitted after fall and hip fx pt had surgery and tolerated procedure well no complications sent to rehab Discharge Exam - Head Exam Head Exam: ATRAUMATIC, NORMOCEPHALIC - Eye Exam Eye Exam: Normal appearance - Respiratory Exam Respiratory Exam: Clear to PA & Lateral, NORMAL BREATHING PATTERN. absent: Chest Wall Tenderness - Cardiovascular Exam Cardiovascular Exam: +S1, +S2 - GI/Abdominal Exam GI & Abdominal Exam: Normal Bowel Sounds Discharge Plan - Follow Up Plan Condition: GOOD Disposition: REHAB FACILITY/REHAB UNIT Instructions: Hip Fracture (DC), Total Hip Replacement (DC), Managing Pain After Surgery Additional Instructions: -FOLLOW UP WITH DR. ROMERO IN 2 WEEKS IN HIS OFFICE (BY 07/26/18)---PLEASE ARRANGE FOR APPOINTMENT AND FOR TRANSPORTATION TO AND FROM THE REHAB FACILITY. -CONTINUE MEDICATIONS PER THE MED REC FORM---CHANGES CAN BE MADE BY ATTENDING MD AT REHAB. -PHYSICAL THERAPY TOLERATED. -FALL PRECAUTIONS PER FACILITY PROTOCOL. -FOR QUESTIONS REGARDING RECENT HOSPITALIZATION AND/OR SURGERY, MAY CONTACT DR. SINGH OR DR. ROMERO. Referrals: Chris Romero III, MD [Staff Provider] - Jewels Singh MD [Staff Provider] -
[2018-07-15] MEDS ORDERED: Ergocalciferol 50,000 Intl Units Cap PO SCH (10:00)
== END 2018-07-12 15:58 | DRG 470 ==
LOC: C.ER 00:24 → C.6T 03:29
PROVIDERS: ADMIT Internal Medicine; ATTEND Internal Medicine
PROC: 0LNK0ZZ Release Left Hip Tendon, Open Approach (ICD-10-PCS; 2018-07-08)
PROC: 0QR Lower Bones, Replacement (ICD-10-PCS; 2018-07-08)
PROC: 0SRB03A Replacement of Left Hip Joint with Ceramic Synthetic Substitute, Uncemented, Open Approach (ICD-10-PCS; principal; 2018-07-08 14:30)
DX: S72.012A Unspecified intracapsular fracture of left femur, initial encounter for closed fracture (principal); M16.12 Unilateral primary osteoarthritis, left hip; H91.3 Deaf nonspeaking, not elsewhere classified; W18.30XA Fall on same level, unspecified, initial encounter; Z86.61 Personal history of infections of the central nervous system

== ENCOUNTER 2018-12-23 09:56 | Outpatient (CLI) | payer OTHER | END 2018-12-23 09:57 | disposition home or self-care (01) | LOC: C.MAMMO 09:56 | DX: Z12.31 Encounter for screening mammogram for malignant neoplasm of breast (principal) ==

== ENCOUNTER 2019-02-03 17:57 | Emergency (ER) | payer OTHER ==
[2019-02-03 19:08] LABS: BASO # 0.1 K/uL (0.0-0.2); BASO % 1.3 % (0.0-2.0); EOS # 0.4 K/uL (0.0-0.7); EOS % 6.5 % (0.0-4.0); HEMOGLOBIN 12.2 g/dL (11.0-16.0); LYMPH # 2.1 K/uL (1.0-4.3); LYMPH % 37.8 % (20.0-40.0); MEAN CELL VOLUME 91.7 fL (81.0-99.0); MEAN CORPUSCULAR HEMOGLOBIN 30.8 pg (27.0-31.0); MEAN CORPUSCULAR HGB CONC 33.6 g/dL (33.0-37.0); MEAN PLATELET VOLUME 6.9 fL (7.2-11.7); MONO # 0.4 K/uL (0.0-0.8); MONO % 7.3 % (0.0-10.0); NEUT # 2.6 K/uL (1.8-7.0); NEUT % 47.1 % (50.0-75.0); RBC 3.98 Mil/uL (3.80-5.20); RED CELL DISTRIBUTION WIDTH 14.1 % (11.5-14.5); WHITE BLOOD COUNT 5.5 K/uL (4.8-10.8)
[2019-02-03 19:14] LABS: SQUAMOUS EPITHIAL < 1 /hpf (0-5); URINE BACTERIA RARE (<OCC); URINE BILIRUBIN NEGATIVE (NEGATIVE); URINE BLOOD NEGATIVE (NEGATIVE); URINE CLARITY Clear (Clear); URINE COLOR Colorless (YELLOW); URINE GLUCOSE (UA) NORMAL (Normal); URINE LEUKOCYTE ESTERASE NEG Leu/uL (Negative); URINE PROTEIN NEGATIVE (NEGATIVE); URINE UROBILINOGEN NORMAL mg/dL (0.2-1.0)
[2019-02-03 19:19] LABS: HCG,QUALITATIVE URINE NEGATIVE (NEGATIVE)
[2019-02-03 19:22] LABS: ALB/GLOB RATIO 1.3 (1.0-2.1); ALBUMIN 4.2 g/dL (3.5-5.0); ALT/SGPT 26 U/L (9-52); AST/SGOT 26 U/L (14-36); BLOOD UREA NITROGEN 11 mg/dL (7-17); CALCIUM 9.5 mg/dl (8.6-10.4); GFR NON-AFRICAN AMERICAN > 60; LIPASE 93 U/L (23-300)
[2019-02-03 19:28] LABS: PARTIAL THROMBOPLASTIN TIME 27.7 SECONDS (21-34); PROTHROMBIN TIME 11.4 SECONDS (9.7-12.2)
--- NOTE | 2019-02-03 19:29 | C.PDOC ---
History Of Present Illness 58 year old female presents to ED with brother due to dark stool since this morning. Patient has no history of GI bleeds or anemia. Patient was collecting stool for a routine occult stool sample and her brother arranged for her to de fecate into a caruso. 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 Patient denies belly pain, weight loss, tarry stool, nausea, and vomiting. Time Seen by Provider: 02/03/19 18:37 Chief Complaint (Nursing): GI Problem History Per: Patient, Family (brother), [employer] (brother) History/Exam Limitations: no limitations Onset/Duration Of Symptoms: Hrs Current Symptoms Are (Timing): Still Present Associated Symptoms: Melena. denies: Nausea, Vomiting, Rectal Bleeding, Bloody Diarrhea Past Medical History Reviewed: Historical Data, Nursing Documentation, Vital Signs Vital Signs: Last Vital Signs Temp 98.2 F 02/03/19 18:14 Pulse 80 02/03/19 18:14 Resp 16 02/03/19 18:14 BP 117/68 02/03/19 18:14 Pulse Ox 100 02/03/19 18:14 Primary Care Provider: Nohemi Arboleda - Medical History PMH: Denies: Chronic Kidney Disease Surgical History: No Surg Hx - [facility] Procedures BUNIONECTOMY NEC (06/12/15) RELEASE LEFT HIP TENDON, OPEN APPROACH (07/08/18) REPAIR OF HAMMER TOE (06/12/15) REPLACE OF L HIP JT WITH CERAMIC, UNCEMENT, OPEN APPROACH (07/08/18) REPLACEMENT OF LEFT ACETABULUM WITH AUTOL SUB, OPEN APPROACH (07/08/18) Family History: States: Unknown Family Hx - Social History Hx Alcohol Use: No Hx Substance Use: No - Immunization History Hx Tetanus Toxoid Vaccination: No Hx Influenza Vaccination: No Hx Pneumococcal Vaccination: No Review Of Systems Constitutional: Negative for: Fever, Chills, Weakness, Weight loss Gastrointestinal: Positive for: Melena. Negative for: Nausea, Vomiting, Hematochezia, Rectal Pain Physical Exam - Physical Exam Appears: Well, Non-toxic, No Acute Distress, Other (completely deaf) Skin: Normal Color, Warm, Dry Head: Atraumatic, Normacephalic Neck: Normal ROM, Supple Chest: Symmetrical, No Deformity Cardiovascular: Rhythm Regular, No Murmur Respiratory: No Accessory Muscle Use, No Rales, No Rhonchi, No Wheezing Gastrointestinal/Abdominal: Soft, No Tenderness, No Distention, No Guarding, No Rebound Rectal: Heme Negative, Other (scant,dark stool) Neurological/Psych: Oriented x3, Normal Speech, Normal Cognition ED Course And Treatment - Laboratory Results Result Diagrams: 02/03/19 19:04 02/03/19 19: Lab Results: Total Bilirubin 0.5 mg/dL (0.2-1.3) 02/03/19 19: AST 26 U/L (14-36) 02/03/19 19: ALT 26 U/L (9-52) 02/03/19 19: Alkaline Phosphatase 81 U/L (38-126) 02/03/19 19: Total Protein 7.6 g/dL (6.3-8.3) 02/03/19 19: Albumin 4.2 g/dL (3.5-5.0) 02/03/19: Globulin 3.3 gm/dL (2.2-3.9) 02/03/19 19: Albumin/Globulin Ratio 1.3 (1.0-2.1) 02/03/19 19: Lipase 93 U/L (23-300) 02/03/19 19: Urine Color Colorless (YELLOW) 02/03/19: Urine Clarity Clear (Clear) 02/03/19 19: Urine pH 7.0 (5.0-8.0) 02/03/19 19: Ur Specific [place] 1.002 (1.003-1.030) L 02/03/19 19: Urine Protein Negative mg/dL (NEGATIVE) 02/03/19 19: Urine Glucose (UA) Normal mg/dL (Normal) 02/03/19 19: Urine Ketones Negative mg/dL (NEGATIVE) 02/03/19: Urine Blood Negative (NEGATIVE) 02/03/19: Urine Nitrate Negative (NEGATIVE) 02/03/19 19: Urine Bilirubin Negative (NEGATIVE) 02/03/19 19: Urine Urobilinogen Normal mg/dL (0.2-1.0) 02/03/19 19: Ur Leukocyte Esterase Neg Jd/uL (Negative) 02/03/19 19: Urine WBC (Auto) < 1 /hpf (0-5) 02/03/19 19:04 Ur Squamous Epith Cells < 1 /hpf (0-5) 02/03/19 19:04 Urine Bacteria Rare (<OCC) 02/03/19 19:04 Urine HCG, Qual Negative (NEGATIVE) 02/03/19 19:04 Urine HCG, Qual Negative (NEGATIVE) 02/03/19 19:04 Lab Interpretation: Normal (normal) Interpretation Of Abnormal: guaiac stool NEGATIVE Urine POC: Negative O2 Sat by Pulse Oximetry: 100 (in RA) Pulse Ox Interpretation: Normal Progress Note: CMP, CBC, lipase, PTT, prothrombin, and UA ordered for patient. Medical Decision Making Medical Decision Making: Dark stools this AM are GUaiac NEG normal labs/H&H Prob diet related. opt f/u. Disposition Doctor Will See Patient In The: Office Counseled Patient/Family Regarding: Studies Performed, Diagnosis - Disposition Referrals: Nohemi Arboleda MD [Staff Provider] - Disposition: HOME/ ROUTINE Disposition Time: 19:29 Condition: GOOD Additional Instructions: normal labs NO blood in stools were noted on Guaiac Occult Stool TEst Forms: General Discharge Instructions, [facility] (Persian) - Clinical Impression Clinical Impression: Dark stools - Scribe Statement The provider has reviewed the documentation as recorded by the Scribe (Yen Brandon) All medical record entries made by the Scribe were at my direction and personally dictated by me. I have reviewed the chart and agree that the record accurately reflects my personal performance of the history, physical exam, medical decision making, and the department course for this patient. I have also personally directed, reviewed, and agree with the discharge instructions and disposition.
[2019-02-03 19:42] VITALS: BP 126/72; PULSE 88; RESP 20; TEMP 98
[2019-02-03 20:25] VITALS: O2SAT 100
== END 2019-02-03 19:36 | disposition home or self-care (01) ==
LOC: C.ER 17:57
DX: R19.5 Other fecal abnormalities (principal)